=== PATIENT | male | born 1990 | race Caucasian/White ===

== ENCOUNTER 2017-03-13 16:42 | Emergency (ER) | payer SELFPAY ==
[2017-03-13 16:52] VITALS: BP 126/72
--- NOTE | 2017-03-13 17:13 | ER Document Report ---
HPI - HPI Patient complains to provider of: Tooth ache Onset: Other - 3 months Onset/Duration: Gradual, Persistent Quality of pain: Achy Pain Level: 5 Context: 26-year-old male complaining of left lower 3rd molar pain for 3 months. Does not have enough money for the dentist. Has been taking vetinary amoxicillin that he purchased. No facial swelling or fever Associated Symptoms: None Exacerbated by: Denies Relieved by: Denies - ROS ROS below otherwise negative: Yes Systems Reviewed and Negative: Yes All other systems reviewed and negative - DERM Skin Color: Normal Past Medical History - General Information source: Patient - Social History Smoking Status: Current Every Day Smoker Frequency of alcohol use: None Drug Abuse: None Family History: None - Medical History Medical History: Negative Renal/ Medical History: Denies: Hx Peritoneal Dialysis Surgical Hx: Negative Vertical Provider Document - CONSTITUTIONAL Agree With Documented VS: Yes Exam Limitations: No Limitations General Appearance: No Apparent Distress - INFECTION CONTROL TRAVEL OUTSIDE OF THE [place] IN LAST 30 DAYS: No - HEENT HEENT: Normocephalic Notes: Mild inflammation of the gingiva that is partially covering the third left lower molar - NECK Neck: Supple. negative: Lymphadenopathy-Left, Lymphadenopathy-Right - RESPIRATORY O2 Sat by Pulse Oximetry: 98 - NEURO Level of Consciousness: Awake, Alert, Appropriate - DERM Integumentary: Warm, Dry Course - Vital Signs Vital signs: Temp Pulse Resp BP Pulse Ox 98.4 F 74 14 126/72 H 98 03/13/17 16:49 03/13/17 16:49 03/13/17 16:49 03/13/17 16:49 03/13/17 16:49 Discharge - Discharge Clinical Impression: Pain, dental, Pericoronitis Condition: Good Disposition: HOME, SELF-CARE Instructions: Penicillin V K ([facility]), Toothache ([facility]), Anti-Inflammatory Medication ([facility]), Dentist Additional Instructions: mouthwash three times per day use the syringe to irrigate under the flap of skin see the dentist to er any concerns Please complete the patient satisfaction survey if you get one, and return it.. If you do not receive a survey, then you can go to the [facility] website, [email or web address] and place your comments about your very good care. Thank you very much. It was a pleasure being your medical provider today. Prescriptions: Ibuprofen [Motrin 800 mg Tablet] 800 mg PO Q8HP PRN #30 tablet PRN Reason: Chlorhexidine Gluconate [Peridex] 15 ml MM TID #200 mouthwash Penicillin V Potassium [Penicillin Vk 500 mg Tablet] 500 mg PO QID #40 tablet
[2017-03-13] MEDS ORDERED: IBUPROFEN 800 MG TABLET PO ONE (17:27)
[2017-03-13] MEDS ORDERED: BENZONATATE 100 MG CAPSULE PO ONE (17:27)
[2017-03-13] MEDS ORDERED: ACETAMINOPHEN 325 MG TABLET PO ONE (17:27)
[2017-03-13] MEDS ORDERED: PENICILLIN V POTASSIUM 500 MG TABLET PO ONE (17:27)
== END 2017-03-13 17:58 | disposition home or self-care (01) ==
LOC: ER 16:42
DX: K05.30 Chronic periodontitis, unspecified (principal); K08.89 Other specified disorders of teeth and supporting structures; Z59.9 Problem related to housing and economic circumstances, unspecified; F17.200 Nicotine dependence, unspecified, uncomplicated
CPT/HCPCS: 99282